=== PATIENT | female | born 1980 | race Two or more races ===

== ENCOUNTER 2016-06-23 13:20 | Inpatient (IN) | payer OTHER ==
[2016-06-23] MEDS ORDERED: LACTATED RINGERS SOLUTION 1,000 ML IV SCH (16:00)
[2016-06-23] MEDS ORDERED: BUTORPHANOL TARTRATE 1 MG/ML VIAL IVPB ONE (17:44)
[2016-06-23] MEDS ORDERED: PROMETHAZINE HCL 25 MG/1 ML VIAL IVPUSH ONE (17:44)
[2016-06-23] MEDS ORDERED: DEXTROSE 5%-LACTATED RINGERS 1,000 ML IV SCH (17:45)
[2016-06-23 18:28] VITALS: BMI 25.9
--- NOTE | 2016-06-23 18:49 | HP ---
Past Medical History - Admission History of Present Illness: 35 y/o G5/3013 with SIUP at 38 weeks who presented to the office with complaints of vaginal bleeding and cramping, was sent to L&D for monitoring and further evaluation. In the office the patient was noted to have light VB/ spotting and the patient's cervix was 1cm dilated. After 4 hours of ambulation and monitoring, the patient is now in more pain, delon every 2-4 minutes and her cervix is 3cm dilated. complicated by AMA, a vanishing twin (in 1st trimester) and the patient's history of Multiple sclerosis. The patient did follow with MFM and neurology throughout her and she has been stable. GBS negative, HIV negative, HepBSAG negative, Rubella Immune. RPR was positive in 1st trimester but treponeum pallidum testing was negative - likely false positive 2/2 . 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 No: Seizure Cardiovascular: No: CAD, HTN Pulmonary: No: Asthma, Pulmonary Embolus Gastrointestinal: No: Gastritis, GERD Hepatobiliary: No: Hepatitis B, Hepatitis C Renal/: No: UTI Reproductive: No: Ectopic , Fibroids, PID, Polycystic Ovary Syndrome ...: 5 ...Para: 3 ...Term: 3 ...: 0 ...Spon : 1 ...Induced : 0 ...Multiple Gestation: 0 ...LMP: 10/21/15 ... Weeks Gestation by Dates: 35.1 ...EDC by Dates: 07/27/16 ...EDC by Sono: 07/07/16 Infectious Disease: No: HIV, MRSA, STD's Psych: Yes: Anxiety (history of Anxiety after being diagnosed with multiple sclerosis) Rheumatology: No: Fibromyalgia Endocrine: No: Hyperparathyroidism, Hyperthyroidism - Past Surgical History Past Surgical History: Yes: None Hx Myomectomy: No Hx Transabdominal Cerclage: No Additional Surgical History: D&C. breast surgery - Smoking History Smoking history: Never smoked Have you smoked in the past 12 months: No Aproximately how many cigarettes per day: 0 - Alcohol/Substance Use Hx Alcohol Use: No History of Substance Use: reports: None - Social History Usual Living Arrangement: Yes: With Spouse ADL: Independent History of Recent Travel: No Home Medications - Allergies Allergies/Adverse Reactions: Allergies Allergy/AdvReac Type Severity Reaction Status Date / Time No Known Drug Allergies Allergy Verified 06/23/16 14:09 - Home Medications Home Medications: Ambulatory Orders Vit/Iron Fumarate/FA [ Tablet] 1 each PO DAILY 06/23/16 Review of Systems - Review of Systems Constitutional: reports: No Symptoms Eyes: reports: No Symptoms HENT: reports: No Symptoms Neck: reports: No Symptoms Cardiovascular: reports: No Symptoms Respiratory: reports: No Symptoms Gastrointestinal: reports: No Symptoms Genitourinary: reports: Vaginal Bleeding Breasts: reports: No Symptoms Reported Musculoskeletal: reports: No Symptoms Integumentary: reports: No Symptoms Neurological: reports: No Symptoms Endocrine: reports: No Symptoms Hematology/Lymphatic: reports: No Symptoms Physical Exam - Maternity Vital Signs: Vital Signs Temperature 98.1 F 06/23/16 14:30 Pulse Rate 78 06/23/16 15:08 Respiratory Rate 18 06/23/16 14:30 Blood Pressure 115/69 06/23/16 15:08 O2 Sat by Pulse Oximetry (%) Constitutional: Yes: Well Nourished, No Distress, Calm Eyes: Yes: Conjunctiva Clear, EOM Intact HENT: Yes: Atraumatic, Normocephalic Neck: Yes: Supple, Trachea Midline Cardiovascular: Yes: Regular Rate and Rhythm Lungs: Clear to auscultation - Abdominal Exam/OB Fundal Height: 37 Number of Fetuses: Single Presentation: Vertex Contractions: Yes Regularity: Irregular Intensity: Mild/Mod Monitor Mode: External Heart Rate (range): 130 Category: I Accelerations: Uniform Decelerations: None - Vaginal Exam/OB Vaginal Bleediing: Yes, Light Speculum Exam: No Dilatation (cm): 3 Effacement (%): 60 Amniotic Membrane Status: Intact Presentation: Vertex/Position Station: -3 - Physical Exam Psychiatric: Yes: Alert, Oriented Hemorrhage Risk Assessment - Risk Factors Medium Risk Factors: Yes: None High Risk Factors: Yes: None Risk Score: 1 Risk Level: Medium Risk Problem List - Problems (1) Advanced maternal age during in third trimester Code(s): [id number] - (2) Advanced maternal age in multigravida Code(s): O09.529 - SUPERVISION OF ELDERLY MULTIGRAVIDA, UNSPECIFIED TRIMESTER (3) Term Code(s): Z34.80 - ENCOUNTER FOR SUPRVSN OF NORMAL , UNSP TRIMESTER (4) Multiple sclerosis affecting in third trimester Code(s): O99.353 - DISEASES OF THE NERVOUS SYS COMP , THIRD TRIMESTER G35 - MULTIPLE SCLEROSIS Assessment/Plan 35 y/o female with SIUP at 38 weeks in early labor - FHTS cat 1 - encourage ambulation, will augment with pitocin - GBS negative - Multiple sclerosis - currently on no medications - will follow up with neurology post
[2016-06-23] MEDS ORDERED: OXYTOCIN 15 UNITS/ LR 250 ML 250 ML IVPB SCH (19:00)
[2016-06-23 20:51] LABS: BASOPHIL 0.5 % (0-2.0); EOSINOPHIL 0.9 % (0-4.5); MCH 29.8 pg (25.7-33.7); MEAN CELL VOLUME 90.5 fl (80-96); NEUTROPHILS 70.3 % (42.8-82.8); PLATELET COUNT 211 K/MM3 (134-434); RDW 13.8 % (11.6-15.6); WHITE BLOOD COUNT 9.2 K/mm3 (4.0-10.0)
[2016-06-23 21:05] LABS: CALCIUM 9.2 mg/dL (8.5-10.1); COCKROFT - GAULT 123.4455; CREATININE 0.6 mg/dL (0.55-1.02)
[2016-06-23 21:28] LABS: INR 0.96 (0.82-1.09); PROTHROMBIN TIME (PATIENT) 10.6 SEC (9.98-11.88)
[2016-06-23 21:31] LABS: ACTIVATED PTT 27.5 SECONDS (26.9-34.4)
--- NOTE | 2016-06-23 22:53 | PN ---
Ante-Partal Exam - Subjective Subjective: Pt states contractions are getting strong - but they are tolerable. Vital Signs: Vital Signs Temperature 98.6 F 06/23/16 21:00 Pulse Rate 90 06/23/16 21:00 Respiratory Rate 20 06/23/16 21:00 Blood Pressure 112/73 06/23/16 21:00 O2 Sat by Pulse Oximetry (%) Bleeding: Yes Bleeding Description: Mild (consistent with bloody show) Headache: No Visual changes: No Right upper quadrant pain: No Pain (scale 1-10): 5 - Contractions Contractions: Yes Regularity: Regular Intensity: Moderate Monitor Mode: External - Exam during Labor Heart Rate: 150 Variability: Moderate Category: I Monitor Accelerations: Present Monitor Decelerations: None Exam: Vaginal Dilatation (cm): 4 Effacement (%): 60 Amniotic Membrane Status: Ruptured (AROM for clear but blood tinged fluid on exam today) Amniotic Fluid: Clear, Blood Stained Presentation: Vertex Station: -2 - Assessment/Plan Assessment/Plan: 35 y/o wtih SIUP at 38 weeks, early labor, augmented - AFVSS - FHTs cat 1 - labor, augmented. Pitocin at 3, continue to increase per protocol. S/P AROM. Continue monitoring. IV analgesia or epidural PRN. - GBS negative - anticipate
[2016-06-24] MEDS ORDERED: ELECTROLYTE-148 SOLN 500 ML IV ONE (01:40)
[2016-06-24] MEDS: ELECTROLYTE-148 SOLN 500 ML IV ONE ×2 (01:45→02:40)
[2016-06-24] MEDS ORDERED: FENTANYL/BUPIVACAINE/NS/PF - PCEA - 50 ML DISP.SYRIN EP SCH (02:00)
--- NOTE | 2016-06-24 04:15 | PN ---
Ante-Partal Exam - Subjective Subjective: pt with recurrent variables for 5 consecxutive ctx pt comfortable after epidural Vital Signs: Vital Signs Temperature 97.9 F 06/24/16 03:00 Pulse Rate 92 H 06/24/16 03:45 Respiratory Rate 18 06/24/16 03:45 Blood Pressure 107/74 06/24/16 03:45 O2 Sat by Pulse Oximetry (%) 98 06/24/16 02:30 Bleeding: Yes Bleeding Description: Mild Headache: No Visual changes: No Right upper quadrant pain: No - Contractions Contractions: Yes Regularity: Regular Intensity: Strong Monitor Mode: External - Exam during Labor Heart Rate: 150 Variability: Moderate Category: II Monitor Accelerations: Present Monitor Decelerations: Variable Exam: Vaginal Dilatation (cm): 6 Effacement (%): 90 Amniotic Membrane Status: Ruptured Presentation: Vertex Station: 0 - Assessment/Plan Assessment/Plan: FHTs improved after position change continue pitocin anticipate
[2016-06-24] MEDS ORDERED: ELECTROLYTE-148 SOLN 1,000 ML IV SCH (04:40)
--- NOTE | 2016-06-24 07:28 | PN ---
Ante-Partal Exam - Subjective Subjective: Pt feeling some pressure and some tightness. Vital Signs: Vital Signs Temperature 99.4 F 06/24/16 07:00 Pulse Rate 106 H 06/24/16 06:45 Respiratory Rate 20 06/24/16 06:45 Blood Pressure 109/70 06/24/16 06:45 O2 Sat by Pulse Oximetry (%) 98 06/24/16 02:30 Bleeding: Yes Bleeding Description: Mild Headache: No Visual changes: No Right upper quadrant pain: No Pain (scale 1-10): 1 - Contractions Contractions: Yes Regularity: Regular Intensity: Strong Monitor Mode: External - Exam during Labor Heart Rate: 160 Variability: Moderate Monitor Accelerations: Present Monitor Decelerations: None Exam: Vaginal Dilatation (cm): 10 Effacement (%): 100 Amniotic Membrane Status: Ruptured Presentation: Vertex Station: 0 - Assessment/Plan Assessment/Plan: 35 y/o with SIUP at 38 weeks, early labor, augmented - FHTS cat 1 now, was intermittently category 2 overnight - labor augmented , continue pitocin - GBS negative - anticipate
[2016-06-24] MEDS ORDERED: METHYLERGONOVINE MALEATE 0.2 MG/1 ML AMP IM PRN (09:30)
[2016-06-24] MEDS ORDERED: WITCH HAZEL 50% (TUCKS) 40 PAD/JAR PAD TP PRN (09:30)
[2016-06-24] MEDS ORDERED: oxyCODONE HCL 5 MG TABLET PO PRN (09:30)
[2016-06-24] MEDS ORDERED: BENZOCAINE 20% 57 GM BOTTLE TP PRN (09:30)
[2016-06-24] MEDS ORDERED: OXYTOCIN 20 UNITS in 0.9% NS 1,000 ML IV SCH (09:30)
[2016-06-24] MEDS ORDERED: BENZOCAINE 28 GM HEMORRHOIDAL OINTMENT TP PRN (09:30)
[2016-06-24] MEDS ORDERED: BISACODYL 10 MG SUPP.RECT RC PRN (09:30)
--- NOTE | 2016-06-24 09:42 | PN ---
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 Present: No Infant Gender: Female Position: Right, OA - 1 Minute Total Score: 8 5 Minutes Total Score: 9 - Feeding Plan Initial Plan: Elected not to breastfeed exclusively throughout hospitalization Remarks - Remarks Remarks: Uncomplicated of baby girl from DESI position tight nuchal cord noted after delivery of head, clamped and cut at perineum left shoulder (anterior) delivered with ease along with remainder of placenta was manually delivered without difficulty - bedside ultrasound s/p procedure was done to ensure complete removal - thin stripe with no color flow noted sponge count correct after delivery mom stable baby to well baby nursery
[2016-06-24] MEDS ORDERED: TUBERCULIN PPD 5 TU/0.1ML SYRINGE (IN PATIENT USE ONLY) ID ONE (11:15)
[2016-06-24] MEDS: PRENATAL VITAMINS W/ FOLIC ACID TABLET (FP) PO SCH (11:34)
[2016-06-24] MEDS: FERROUS SO4 325 MG TABLET (FP) PO SCH ×2 (12:13→17:51)
[2016-06-24] MEDS: IBUPROFEN 600 MG TABLET (FP) PO PRN (20:40)
[2016-06-24] MEDS: ACETAMINOPHEN 325 MG TABLET (FP) PO PRN (20:41)
[2016-06-25] MEDS: IBUPROFEN 600 MG TABLET (FP) PO PRN ×2 (05:53→10:01)
[2016-06-25] MEDS: ACETAMINOPHEN 325 MG TABLET (FP) PO PRN ×2 (05:54→10:00)
[2016-06-25 08:46] LABS: BASOPHIL 0.3 % (0-2.0); EOSINOPHIL 0.8 % (0-4.5); MCH 30.3 pg (25.7-33.7); MCHC 33.3 g/dl (32.0-36.0); MEAN CELL VOLUME 91.1 fl (80-96); MEAN PLT VOLUME 8.7 fl (7.5-11.1); PLATELET COUNT 167 K/MM3 (134-434); RDW 13.9 % (11.6-15.6)
[2016-06-25] MEDS: FERROUS SO4 325 MG TABLET (FP) PO SCH ×3 (09:53→17:45)
[2016-06-25] MEDS: PRENATAL VITAMINS W/ FOLIC ACID TABLET (FP) PO SCH (09:53)
--- NOTE | 2016-06-25 13:23 | PN ---
Post Progress Note - Subjective Subjective: 35 yo Para 4, status post vaginal delivery, seen and evaluated. No complaints. She's breast feeding. Type of Delivery: Vital Signs: Vital Signs Temperature 97.5 F L 06/25/16 10:00 Pulse Rate 80 06/25/16 10:00 Respiratory Rate 20 06/25/16 10:00 Blood Pressure 109/67 06/25/16 10:00 O2 Sat by Pulse Oximetry (%) 98 06/24/16 02:30 Breast Exam: Yes: Soft Uterus: Yes: Fundus Firm Abdomen/GI: Yes: Abdomen soft, Tolerating PO Lochia: Yes: Rubra Lochia, amount: Small Activity: Ambulating - Labs Labs: CBC WBC 15.0 K/mm3 (4.0-10.0) H D 06/25/16 08:10 RBC 3.87 M/mm3 (3.60-5.2) 06/25/16 08:10 Hgb 11.7 GM/dL (10.7-15.3) 06/25/16 08:10 Hct 35.3 % (32.4-45.2) 06/25/16 08:10 MCV 91.1 fl (80-96) 06/25/16 08:10 MCHC 33.3 g/dl (32.0-36.0) 06/25/16 08:10 RDW 13.9 % (11.6-15.6) 06/25/16 08:10 Plt Count 167 K/MM3 (134-434) D 06/25/16 08:10 MPV 8.7 fl (7.5-11.1) 06/25/16 08:10 Neutrophils % 81.0 % (42.8-82.8) 06/25/16 08:10 Lymphocytes % 13.6 % (8-40) D 06/25/16 08:10 Monocytes % 4.3 % (3.8-10.2) 06/25/16 08:10 Eosinophils % 0.8 % (0-4.5) 06/25/16 08:10 Basophils % 0.3 % (0-2.0) 06/25/16 08:10 Problem List - Problems (1) Status post normal vaginal delivery Code(s): UOV8239 - Assessment/Plan Status post normal vaginal delivery Stable Routine care D/C home in am
--- NOTE | 2016-06-25 13:25 | DS ---
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 Vital Signs: Vital Signs Temperature 97.5 F L 06/25/16 10:00 Pulse Rate 80 06/25/16 10:00 Respiratory Rate 20 06/25/16 10:00 Blood Pressure 109/67 06/25/16 10:00 O2 Sat by Pulse Oximetry (%) 98 06/24/16 02:30 Constitutional: Yes: Well Nourished Eyes: Yes: Conjunctiva Clear HENT: Yes: Atraumatic Neck: Yes: Supple, Trachea Midline Cardiovascular: Yes: Regular Rate and Rhythm Respiratory: Yes: Regular, CTA Bilaterally Gastrointestinal: Yes: Normal Bowel Sounds ...Rectal Exam: Yes: WNL External Genitalia: Yes: Normal Cervix: Yes: Normal Uterus: Yes: Firm ....Post : Yes: Uterus firm, Moderate lochia serosa Breast(s): Yes: WNL Wound/Incision: Yes: Well Approximated Neurological: Yes: Alert, Oriented ...Motor Strength: WNL Psychiatric: Yes: Alert, Oriented Labs: CBC, BMP 06/25/16 08:10 06/23/16 19:45 Delivery - Delivery Vaginal Delivery: No Problems Type of Anesthesia: Epidural Episiotomy/Laceration: None EBL (cc): 300 Delivery, Single - Stages of Labor Date 1st Stage Initiatied: 06/23/16 Time 1st Stage Initiated: 13:00 Date 2nd Stage Initiated: 06/24/16 Time 2nd Stage Initiated: 07:25 Date of Delivery: 06/24/16 Time of Delivery: 09:18 Time Placenta Delivered: 09:22 Placenta: Yes: Manual Removal - Condition of Tube Laser Operator/Vascular Ultrasound Technician Present: No Infant Gender: Female Weight: 6 lb 13 oz Position: Right, OA Total Hours ROM (Hrs/Mins): 10 HOURS 28 MINUTES - 1 Minute Total Score: 8 5 Minutes Total Score: 9 - Feeding Plan Initial Plan: Elected not to breastfeed exclusively throughout hospitalization Discharge Summary Reason For Visit: LABOR Current Active Problems Advanced maternal age during in third trimester (Acute) Advanced maternal age in multigravida (Acute) Multiple sclerosis affecting in third trimester (Acute) Status post normal vaginal delivery (Acute) Term (Acute) Procedures: Principal: Normal spontaneus vaginal delivery Hospital Course: Routine care - Instructions Diet, Activity, Other Instructions: Regular diet No douching, no sexual intercourse x 6 weeks F/U with MD in 6 weeks. Disposition: HOME - Home Medications Comprehensive Discharge Medication List: Ambulatory Orders Vit/Iron Fumarate/FA [ Tablet] 1 each PO DAILY 06/23/16
[2016-06-25] MEDS ORDERED: SENNOSIDES/DOCUSATE COMBO (SENNA PLUS) TABLET (UD) PO PRN (22:00)
[2016-06-26] MEDS: PRENATAL VITAMINS W/ FOLIC ACID TABLET (FP) PO SCH (09:18)
[2016-06-26] MEDS: FERROUS SO4 325 MG TABLET (FP) PO SCH ×2 (09:18→12:18)
[2016-06-26 13:27] VITALS: BP 119/69; PULSE 72; TEMP 97.9
--- NOTE | 2016-06-26 16:48 | PN ---
Post Note - Post Date of Delivery: 06/24/16 Vital Signs: Vital Signs - 24 hr 06/25/16 06/26/16 22:00 08:30 Temperature 98.1 F 97.9 F Pulse Rate 82 72 Respiratory 18 20 Rate Blood Pressure 116/70 119/69 - Subjective Subjective: No Complaints - Objective Afebrile: No Breast: Not engorged Abdomen: Soft, Non-tender Uterus: Fundus firm Vagina: Scant lochia Extremities: Non-tender - Assessment/Plan (2) Multiple sclerosis affecting in third trimester Assessment: S/P Normal Plan: Routine Care
== END 2016-06-26 14:20 | disposition home or self-care (01) | DRG 560 ==
LOC: JDEL 13:20 → JLDR 17:35 → J3W 06-24 10:54
PROVIDERS: ADMIT Obstetrics & Gynecology; ATTEND Obstetrics & Gynecology
PROC: 10E0XZZ Delivery of Products of Conception, External Approach (ICD-10-PCS; principal; 2016-06-24)
DX: O99.354 Diseases of the nervous system complicating childbirth (principal); G35 Multiple sclerosis; O69.1XX0 Labor and delivery complicated by cord around neck, with compression, not applicable or unspecified; Z3A.38 38 weeks gestation of pregnancy; Z37.0 Single live birth
CPT/HCPCS: 36415; 59409; 80048; 85025; 85610; 85730; 86593; 86780; 86850; 86900; 86901

== ENCOUNTER 2016-06-29 10:08 | Emergency (ER) | payer OTHER ==
[2016-06-29 10:19] VITALS: BP 127/85; PULSE 78; TEMP 99.4; BMI 23.8
--- NOTE | 2016-06-29 10:52 | PDOC ---
*Physical Exam - Vital Signs Last Vital Signs Temp Pulse Resp BP Pulse Ox 99.4 F 78 18 127/85 98 06/29/16 10:16 06/29/16 10:16 06/29/16 10:16 06/29/16 10:16 06/29/16 10:16 - Physical Exam Comments: 06/29/16 10:52 MIDLEVEL NOTE Pt seen by Midlevel Provider under my direct supervision. Pt interviewed and examined. Ancillary studies reviewed. I agree with plan as outlined by Midlevel Provider. Laboratory Tests 06/29/16 11:27 Urine Color Ltyellow Urine Appearance Clear Urine pH 7.0 D Ur Specific [place] 1.015 Urine Protein Negative Urine Glucose (UA) Negative Urine Ketones Negative Urine Blood 3+ H Urine Nitrite Negative Urine Bilirubin Negative Urine Urobilinogen Negative Ur Leukocyte Esterase 3+ H Urine RBC 179 Urine WBC 35 Ur Epithelial Cells Rare Urine Mucus Rare *DC/Admit/Observation/Transfer Diagnosis at time of Disposition: UTI (urinary tract infection) - Discharge Dispostion Disposition: HOME - Prescriptions Prescriptions: Nitrofurantoin Monohyd/M-Cryst [Macrobid -] 100 mg PO BID #14 capsule - Referrals Referrals: Michelle Salvador DO [Staff Physician] - Sam Maza MD [Primary Care Provider] - - Patient Instructions Printed Discharge Instructions: DI for Urinary Tract Infection (UTI) Additional Instructions: Please take antibiotics as prescribed until completed. Please take Motrin or Tylenol for discomfort and fever. Please follow-up with your PLAN COORDINATOR later this week and return to ED if symptoms worsen.
--- NOTE | 2016-06-29 11:35 | PDOC ---
History of Present Illness - General Chief Complaint: Blood Sugar Problem Stated Complaint: FEVER, POSSIBLE INFECTION (POST DELIVERY) Time Seen by Provider: 06/29/16 10:50 History Source: Patient Exam Limitations: No Limitations - History of Present Illness Initial Comments: 06/29/16 11:35 35 y/o female status post vaginal deliveries 6 days ago presents with mid suprapubic pressure and fever since yesterday with a MAXIMUM TEMPERATURE of 100.9. Patient denies constipation, diarrhea, urinary complaints, abnormal vaginal discharge besides vaginal bleeding, back pain, nausea, cough, or chest pain. Patient denies medical history and took Tylenol 650 at 6 AM secondary to pain and fever. Timing/Duration: 24 hours Severity: mild Associated Symptoms: reports: fever/chills Past History - Past Medical History Allergies/Adverse Reactions: Allergies Allergy/AdvReac Type Severity Reaction Status Date / Time No Known Drug Allergies Allergy Verified 06/29/16 10:19 Home Medications: Ambulatory Orders Vit/Iron Fumarate/FA [ Tablet] 1 each PO DAILY 06/23/16 Ibuprofen [Motrin -] 600 mg PO QID PRN #28 tablet 06/26/16 Anemia: No Asthma: No Cancer: No Cardiac Disorders: No CVA: No COPD: No CHF: No Dementia: No Diabetes: No GI Disorders: No Disorders: No HTN: No Hypercholesterolemia: No Liver Disease: No Seizures: No Thyroid Disease: No Other medical history: MS - Surgical History Abdominal Surgery: No Appendectomy: No Cardiac Surgery: No Cholecystectomy: No Lung Surgery: No Neurologic Surgery: No Orthopedic Surgery: No - Reproductive History Is Patient Now?: No - Psycho/Social/Smoking Cessation Hx Suicidal Ideation: No Smoking Status: No Smoking History: Never smoked Have you smoked in the past 12 months: No Number of Cigarettes Smoked Daily: 0 Hx Alcohol Use: No Drug/Substance Use Hx: No Substance Use Type: None Hx Substance Use Treatment: No Patient Lives Alone: No Lives with/in: spouse/SO Review of Systems - Review of Systems Able to Perform ROS?: Yes Constitutional: Yes: Chills, Fever HEENTM: No: Symptoms Reported Respiratory: No: Symptoms reported Cardiac (ROS): No: Symptoms Reported ABD/GI: Yes: Abdominal cramping : No: Symptoms Reported Musculoskeletal: No: Symptoms Reported Integumentary: No: Symptoms Reported Neurological: No: Symptoms reported *Physical Exam - Vital Signs Last Vital Signs Temp Pulse Resp BP Pulse Ox 99.4 F 78 18 127/85 98 06/29/16 10:16 06/29/16 10:16 06/29/16 10:16 06/29/16 10:16 06/29/16 10:16 - Physical Exam General Appearance: Yes: Nourished, Appropriately Dressed. No: Apparent Distress HEENT: positive: EOMI, DIMITRI, Pharynx Normal. negative: Pale Conjunctivae Neck: positive: Supple Respiratory/Chest: positive: Lungs Clear, Normal Breath Sounds. negative: Respiratory Distress, Accessory Muscle Use Cardiovascular: positive: Regular Rhythm, Regular Rate. negative: Murmur Gastrointestinal/Abdominal: positive: Soft, Tenderness (mid suprapubic and periumbilical). negative: Hernia, Mass Musculoskeletal: negative: CVA Tenderness Extremity: positive: Normal Capillary Refill. negative: Pedal Edema Integumentary: positive: Normal Color, Warm, Moist Neurologic: positive: Motor Strength 5/5 ( ambulatory) Medical Decision Making - Medical Decision Making 06/29/16 11:38 Patient status post vaginal delivery 6 days ago complaining of fever and suprapubic. Patient does have point tenderness to the area and the periumbilical region. Patient no right lower quadrant or right upper quadrant pain. Patient states did have manual removal of her placenta and then had a Francis catheter placed status post delivery patient ordered for urinalysis urine culture and explained to patient if negative will continue with labs and possible imaging. 06/29/16 13:07 Patient will be revitalize and discharged home with Macrobid. Patient is to follow up with Dr. Salvador her RESIDENTIAL PROPERTY CONSULTANT. Laboratory Tests 06/29/16 11:27 Urine Blood 3+ H Ur Leukocyte Esterase 3+ H Urine RBC 179 Urine WBC 35 *DC/Admit/Observation/Transfer Diagnosis at time of Disposition: Urinary tract infection Qualifiers: Urinary tract infection type: acute cystitis Hematuria presence: with hematuria Qualified Code(s): N30.01 - Acute cystitis with hematuria - Discharge Dispostion Disposition: HOME - Referrals Referrals: Sam Maza MD [Primary Care Provider] - Michelle Salvador DO [Staff Physician] - - Patient Instructions Printed Discharge Instructions: DI for Urinary Tract Infection (UTI) Additional Instructions: Please take antibiotics as prescribed until completed. Please take Motrin or Tylenol for discomfort and fever. Please follow-up with your RESIDENTIAL PROPERTY CONSULTANT later this week and return to ED if symptoms worsen.
[2016-06-29 11:59] LABS: URINE APPEARANCE CLEAR; URINE BILIRUBIN NEGATIVE (NEGATIVE); URINE COLOR LTYELLOW; URINE GLUCOSE (UA) NEGATIVE (NEGATIVE); URINE KETONE NEGATIVE (NEGATIVE); URINE NITRITE NEGATIVE (NEGATIVE); URINE PROTEIN NEGATIVE (NEGATIVE); URINE UROBILINOGEN NEGATIVE E.U./dl (0.2-1.0)
[2016-06-29 12:01] LABS: URINE BLOOD 3+ (NEGATIVE); URINE LEUK ESTERASE 3+ (NEGATIVE)
[2016-06-29 12:57] LABS: URINE MUCUS RARE; URINE RBC 179 /hpf (0-3); URINE WBC 35 /hpf (3-5)
== END 2016-06-29 13:26 | disposition home or self-care (01) ==
LOC: JER 10:08
DX: O86.29 Other urinary tract infection following delivery (principal); N30.01 Acute cystitis with hematuria
CPT/HCPCS: 81003; 81015; 87077; 87086; 99282-25

== ENCOUNTER 2016-07-02 00:39 | Inpatient (IN) | payer OTHER ==
--- NOTE | 2016-07-02 00:44 | PDOC ---
History of Present Illness <Maury Harman - Last Filed: 07/02/16 00:44> <Zoe Burger - Last Filed: 07/02/16 01:51> <CashTrisha - Last Filed: 07/02/16 22:55> - General Stated Complaint: CHEST PAIN Time Seen by Provider: 07/02/16 00:42 - History of Present Illness Initial Comments: 07/02/16 01:30 The patient is a 35 year old female, with a recent history of vaginal delivery on 06/22/16 and a significant past medical history of, who presents to the emergency department febrile, with pleuritic chest pain and difficulty breathing s/p taking augmentin 30 minutes prior to her ED arrival. She states she was feeding her after taking her antibiotics and developed a sudden onset of chest pain. She localizes the pain to her midsternal region and reports feeling a pinching to her left scapula. She states her pain is worse with inspiration. The patient reports one episode of emesis at the onset of her chest pain at home. She denies nausea or vomiting since. The patient states she was seen in the ED on 06/29/16, diagnosed with a UTI, and prescribed macrobid, however, the patient reports Dr. Salvador later prescribed her augmentin. She states her fevers have been persistent for 6 days and reports her oral temperature was 100F yesterday and is 102F today despite taking antibiotics. She denies chest pain, shortness of breath, headache and dizziness. She denies fever, chills, nausea, vomit, diarrhea and constipation. She denies dysuria, frequency, urgency and hematuria. 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 Salvador (Zoe Burger) Past History - Past Medical History Anemia: No Asthma: No Cancer: No Cardiac Disorders: No CVA: No COPD: No CHF: No Dementia: No Diabetes: No GI Disorders: No Disorders: No HTN: No Hypercholesterolemia: No Liver Disease: No Seizures: No Thyroid Disease: No - Surgical History Abdominal Surgery: No Appendectomy: No Cardiac Surgery: No Cholecystectomy: No Lung Surgery: No Neurologic Surgery: No Orthopedic Surgery: No - Psycho/Social/Smoking Cessation Hx Suicidal Ideation: No Smoking Status: No Smoking History: Never smoked Have you smoked in the past 12 months: No Number of Cigarettes Smoked Daily: 0 Hx Alcohol Use: No Drug/Substance Use Hx: No Substance Use Type: None Hx Substance Use Treatment: No <Maury Harman - Last Filed: 07/02/16 00:44> <Zoe Burger - Last Filed: 07/02/16 01:51> <Trisha Cash - Last Filed: 07/02/16 22:55> - Past Medical History Allergies/Adverse Reactions: Allergies Allergy/AdvReac Type Severity Reaction Status Date / Time No Known Drug Allergies Allergy Verified 07/02/16 02:29 Home Medications: Ambulatory Orders Nitrofurantoin Monohyd/M-Cryst [Macrobid -] 100 mg PO BID #14 capsule 06/29/16 Amoxicillin/Potassium Clav [Augmentin 875-125 Tablet] 1 each PO BID 07/02/16 Cardiac Specific PMH - Complaint Specific PMHX Pacemaker: No <Maury Harman - Last Filed: 07/02/16 00:44> Review of Systems <Maury Harman - Last Filed: 07/02/16 00:44> - Review of Systems Able to Perform ROS?: Yes <Zoe Burger - Last Filed: 07/02/16 01:51> <Trisha Cash - Last Filed: 07/02/16 22:55> - Review of Systems Comments:: 07/02/16 01:31 CONSTITUTIONAL: (+) fever, no chills, no fatigue EYES: No visual changes ENT: No ear pain, no sore throat CARDIOVASCULAR: (+) pleuritic chest pain, no palpitations RESPIRATORY: (+) difficulty breathing. No cough, no SOB GI: No abdominal pain, no nausea, no vomiting, no constipation, no diarrhea GENITOURINARY: No dysuria, no frequency, no hematuria MUSKULOSKELETAL: No backpain, no joint pain, no myalgias SKIN: No rash NEURO: No headache (Zoe Burger) *Physical Exam <Maury Harman - Last Filed: 07/02/16 00:44> <Zoe Burger - Last Filed: 07/02/16 01:51> <Trisha Cash - Last Filed: 07/02/16 22:55> - Vital Signs Last Vital Signs Temp Pulse Resp BP Pulse Ox 100.2 F H 81 20 135/81 98 07/02/16 17:30 07/02/16 17:30 07/02/16 17:30 07/02/16 17:30 07/02/16 07:35 - Physical Exam Comments: 07/02/16 01:33 CONSTITUTIONAL: (+) febrile. Well-appearing; well-nourished; in no apparent distress HEAD: Normocephalic; atraumatic EYES: PERRL; EOM intact ENMT: External appears normal; normal oropharynx NECK: Supple; non-tender; no cervical lymphadenopathy CARD: Normal S1, S2; no murmurs, rubs, or gallops RESP: Normal chest excursion with respiration; breath sounds clear and equal bilaterally; no wheezes, rhonchi, or rales ABD: Soft, non-distended; non-tender. no palpable organomegaly, no palpable hernias EXT: Normal ROM in all four extremities; non-tender to palpation; distal pulses intact MUSC: (+) reproducible chest wall tenderness to palpation SKIN: Warm, dry, no rash NEURO: No focal neurological deficiencies (Zoe Burger) Heart Score/ECG Review <Maury Harman - Last Filed: 07/02/16 00:44> <Zoe Burger - Last Filed: 07/02/16 01:51> <Trisha Cash - Last Filed: 07/02/16 22:55> - ECG Intrepretation Comment:: 07/02/16 01:35 ECG was read by Dr. Harman at 00:47 Impression: Sinus bradycardia Vent.Rate: 59 bpm WI Interval 112 bpm QTc: 372 ms (Zoe Burger) ED Treatment Course - LABORATORY CBC & Chemistry Diagram: 07/02/16 01:01 07/02/16 01:01 <Zoe Burger - Last Filed: 07/02/16 01:51> - LABORATORY CBC & Chemistry Diagram: 07/02/16 01:01 07/02/16 01:01 <Trisha Cash - Last Filed: 07/02/16 22:55> - ADDITIONAL ORDERS Additional order review: Laboratory Results 07/02/16 02:20 Ur Specific [place] 1.010 07/02/16 01:01 RBC 4.41 MCV 90.3 MCHC 32.5 RDW 13.5 MPV 8.4 Neutrophils % 70.7 Lymphocytes % 20.3 D Monocytes % 6.8 Eosinophils % 1.6 D Basophils % 0.6 - Medications Given in the ED: ED Medications Discontinued Medications Generic Name Dose Route Start Last Admin Trade Name Jason PRN Reason Stop Dose Admin Sodium Chloride 1,000 mls @ 1,000 mls/hr 07/02/16 00:55 07/02/16 01:33 Normal Saline - IV 07/02/16 01:54 1,000 mls/hr ASDIR STA Administration Sodium Chloride 500 mls @ 500 mls/hr 07/02/16 01:57 07/02/16 04:21 Normal Saline - IV 07/02/16 02:56 500 mls/hr ASDIR STA Administration Ceftriaxone Sodium 1 gm/ 50 mls @ 100 mls/hr 07/02/16 02:49 07/02/16 02:57 Dextrose IVPB 07/02/16 03:18 100 mls/hr ONCE ONE Administration Sodium Chloride 500 mls @ 500 mls/hr 07/02/16 02:49 07/02/16 02:56 Normal Saline - IV 07/02/16 03:48 500 mls/hr ASDIR STA Administration Ampicillin Sodium/Sulbactam 100 mls @ 200 mls/hr 07/02/16 11:00 07/02/16 11:32 Sodium 3 gm/ Sodium Chloride IVPB 07/02/16 11:29 200 mls/hr ONCE ONE Administration Ibuprofen 600 mg 07/02/16 05:00 07/02/16 05:15 Motrin - PO 600 mg Q6H ISHA Administration Medical Decision Making <Maury Harman - Last Filed: 07/02/16 00:44> <Zoe Burger - Last Filed: 07/02/16 01:51> <Trisha Cash - Last Filed: 07/02/16 22:55> - Medical Decision Making 07/02/16 22:53 I received pt on signout and she has a hx of UTI post , then her donor floor technician diagnosed her with a potential endometritis, and upgraded her antibiotics to augmentin x last 2 days. In spite of this pt has continued fever. I will admit her to her [employer] [facility]. ER doc before me treated with ceftriaxone 1 g. Pt feels well and is amenable to admission. Cultures are pending. (Trisha Cash) *DC/Admit/Observation/Transfer <Maury Harman - Last Filed: 07/02/16 00:44> <Zoe Burger - Last Filed: 07/02/16 01:51> - Discharge Dispostion Admit: Yes <Trisha Cash - Last Filed: 07/02/16 22:55> Diagnosis at time of Disposition: Endometritis, Fever, infection - Referrals - Attestations Scribe Attestion: 07/02/16 01:34 Documentation prepared by Zoe Burger, acting as medical doctor nuclear medicine for Maury Harman MD (Zoe Burger)
[2016-07-02 00:51] VITALS: BMI 26.4
[2016-07-02] MEDS ORDERED: SODIUM CHLORIDE 1,000 ML IV STA (00:55)
[2016-07-02 01:11] LABS: BASOPHIL 0.6 % (0-2.0); EOSINOPHIL 1.6 % (0-4.5); MCH 29.4 pg (25.7-33.7); MCHC 32.5 g/dl (32.0-36.0); MEAN CELL VOLUME 90.3 fl (80-96); MEAN PLT VOLUME 8.4 fl (7.5-11.1); NEUTROPHILS 70.7 % (42.8-82.8); PLATELET COUNT 289 K/MM3 (134-434); RDW 13.5 % (11.6-15.6); WHITE BLOOD COUNT 11.4 K/mm3 (4.0-10.0)
[2016-07-02 01:25] LABS: INR 0.97 (0.82-1.09); PROTHROMBIN TIME (PATIENT) 10.7 SEC (9.98-11.88)
[2016-07-02 01:32] LABS: ALBUMIN 2.6 g/dl (3.4-5.0); ALK PHOS 165 U/L (45-117); ANION GAP 10 (8-16); BILIRUBIN,TOTAL 0.3 mg/dL (0.2-1.0); CALCIUM 8.5 mg/dL (8.5-10.1); CO2 23 mmol/L (21-32); COCKROFT - GAULT 107.3975; CREATININE 0.7 mg/dL (0.55-1.02); GLUCOSE,RANDOM 91 mg/dL (74-106); SGOT/AST 23 U/L (15-37); SGPT/ALT 53 U/L (12-78); TOT PROT 6.6 g/dl (6.4-8.2)
[2016-07-02] MEDS ORDERED: SODIUM CHLORIDE 500 ML IV STA ×2 (01:57→02:49)
[2016-07-02 02:21] LABS: URINE APPEARANCE CLEAR; URINE BILIRUBIN NEGATIVE (NEGATIVE); URINE COLOR YELLOW; URINE GLUCOSE (UA) NEGATIVE (NEGATIVE); URINE KETONE NEGATIVE (NEGATIVE); URINE NITRITE NEGATIVE (NEGATIVE); URINE PROTEIN NEGATIVE (NEGATIVE); URINE UROBILINOGEN NEGATIVE E.U./dl (0.2-1.0)
[2016-07-02 02:32] LABS: URINE BLOOD 3+ (NEGATIVE); URINE LEUK ESTERASE 3+ (NEGATIVE)
[2016-07-02 02:42] LABS: URINE BACTERIA RARE /hpf (NONE SEEN); URINE MUCUS RARE; URINE RBC 4 /hpf (0-3); URINE WBC 142 /hpf (3-5)
[2016-07-02] MEDS ORDERED: CEFTRIAXONE 1 GM in DEXTROSE 5%-WATER - 50 ML IVPB ONE (02:49)
[2016-07-02] MEDS ORDERED: CEFTRIAXONE 50 ML ONE (02:55)
[2016-07-02] MEDS ORDERED: ACETAMINOPHEN 325 MG TABLET (FP) PO PRN (04:47)
[2016-07-02] MEDS ORDERED: IBUPROFEN 600 MG TABLET (FP) PO SCH (05:00)
[2016-07-02] MEDS ORDERED: IBUPROFEN 600 MG TABLET (FP) PO PRN (05:17)
[2016-07-02] MEDS ORDERED: AMPICILLIN NA/SULBACTAM NA 3 GM in SODIUM CHLORIDE 100 ML IVPB ONE (11:00)
--- NOTE | 2016-07-02 13:12 | HP ---
Admitting History and Physical - Admission History of Present Illness: 35 y/o female with history of multiple sclerosis and anxiety who is s/p a normal spontaneous vaginal delivery on 06/24/2016 presented to the ED today with complaints of chest pain. The patient had been seen in the ED last week with complaints of fever and was discharged home with treatment for possible UTI. The patient was also given antibiotics for possible endometritis as she had a delivery that was complicated by manual placental extraction. The patient took 2 doses of augmentin at home and after taking the 2nd dose, she had some chest pressure and nausea/vomiting. She then came to the ED for evaluation. CTA of the chest negative for PE. However, the patient complained of persistent fever up to 101.0 at home yesterday. Due to the new symptom of chest pain and persistent fever, the patient was kept for observation. Currently the patient is afebrile and denies any further chest pain since early this morning in the emergency department. Pt tolerating regular diet, ambulating, voiding. Denies CP/SOB. O2 saturations 97-100% on Room air and EKG only showed sinus tachycardia. 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 No: Seizure Pulmonary: No: Asthma, COPD Gastrointestinal: No: GERD, Irritable Bowel Disease Reproductive: No: Ectopic , Fibroids, PID ...LMP: 11/06/14 ...: No Infectious Disease: No: HIV, MRSA, STD's Psych: Yes: Anxiety (history of Anxiety after being diagnosed with multiple sclerosis) Endocrine: No: Hyperthyroidism, Hypothyroidism - Past Surgical History Past Surgical History: Yes: None Additional Past Surgical History: D&C for missed - Smoking History Smoking history: Never smoked Have you smoked in the past 12 months: No Aproximately how many cigarettes per day: 0 - Alcohol/Substance Use Hx Alcohol Use: No History of Substance Use: reports: None - Social History Usual Living Arrangement: Yes: With Spouse ADL: Independent History of Recent Travel: No Home Medications - Allergies Allergies/Adverse Reactions: Allergies Allergy/AdvReac Type Severity Reaction Status Date / Time No Known Drug Allergies Allergy Verified 07/02/16 02:29 - Home Medications Home Medications: Ambulatory Orders Nitrofurantoin Monohyd/M-Cryst [Macrobid -] 100 mg PO BID #14 capsule 06/29/16 Amoxicillin/Potassium Clav [Augmentin 875-125 Tablet] 1 each PO BID 07/02/16 Review of Systems - Review of Systems Constitutional: reports: Fever (at home) Eyes: denies: Blurred Vision, Double Vision HENT: denies: Difficult Swallowing, Throat Pain Neck: reports: No Symptoms Cardiovascular: reports: Chest Pain (earlier today, now resolved), Shortness of Breath (resolved) Genitourinary: reports: No Symptoms Breasts: reports: No Symptoms Reported Musculoskeletal: reports: No Symptoms Integumentary: reports: No Symptoms Neurological: reports: No Symptoms Endocrine: reports: No Symptoms Hematology/Lymphatic: reports: No Symptoms Psychiatric: reports: No Symptoms Physical Examination Vital Signs: Vital Signs Temperature 97.8 F 07/02/16 07:18 Pulse Rate 73 07/02/16 07:18 Respiratory Rate 17 07/02/16 07:18 Blood Pressure 108/69 07/02/16 07:18 O2 Sat by Pulse Oximetry (%) 98 07/02/16 07:35 Constitutional: Yes: Well Nourished, No Distress, Calm Eyes: Yes: Conjunctiva Clear, EOM Intact HENT: Yes: Atraumatic, Normocephalic Neck: Yes: Supple, Trachea Midline Cardiovascular: Yes: Regular Rate and Rhythm Respiratory: Yes: Regular, CTA Bilaterally. No: Rhonchi, SOB, SOB on Exertion, Tachypnea, Wheezes Gastrointestinal: Yes: Normal Bowel Sounds, Soft Breast(s): Yes: WNL Extremities: Yes: WNL Edema: No Neurological: Yes: Alert, Oriented. No: Confusion Psychiatric: Yes: Alert, Oriented Imaging - Results Cat Scan: Report Reviewed, Image Reviewed EKG: Report Reviewed Problem List - Problems (1) Fever Code(s): R50.9 - FEVER, UNSPECIFIED (2) Multiple sclerosis Code(s): G35 - MULTIPLE SCLEROSIS (3) Chest pain in adult Code(s): R07.9 - CHEST PAIN, UNSPECIFIED Assessment/Plan 35 y/o post day # 8 admitted with fevers at home and chest pain - likely endometritis, rule out cardiopulmonary sources of fever - AFVSS - possible endometritis - continue with broad spectrum antibiotics. S/p 2 doses of IV antibiotics, pt afebrile and tolerating PO. Will switch back to PO antibiotics for next dose. If has another episode of n/v and chest discomfort, will d/c oral antibiotics. - chest pain - symptoms have resovled - D dimer elevated on workup, but likely 2 /2 being post (d Dimer normal to be elevated in ) - O2 saturations normal and patient currently asymtpomatic. CTA negative for PE. Doubt PE as source of fever. Incentive spirometer given due to small pleural effusions and atalectasis noted on CT scan. If has another episode of chest pain will consult cardiology. Continue vital signs Q4h. - regular diet - encourage ambulation - If afebrile in A.M. and no further symptoms of chest discomfort - for discharge home
[2016-07-02] MEDS: AMOX TR/POT CLAV 875MG/125MG TABLETS (FP) PO SCH (19:50)
--- NOTE | 2016-07-03 07:21 | PN ---
Progress Note, Physician Chief Complaint: No complaints History of Present Illness: Pt seen/examined and doing well. No pain. Denies CP/SOB/F/C/RECIO. Tmax yesterday 100.2, no true fevers during admission. Pt tolerated Augmentin last night. Due for next dose this a.m. Post bleeding is normal/lochia minimal. No other complaints. - Current Medication List Current Medications: Active Medications Acetaminophen (Tylenol -) 650 mg PO Q4H PRN PRN Reason: PAIN Last Admin: 07/02/16 17:35 Dose: 650 mg Amoxicillin/Clavulanate Potassium (Augmentin - 875mg Tablet) 1 tab PO BID@0800, 1930 ISHA Last Admin: 07/02/16 19:50 Dose: 1 tab Ibuprofen (Motrin -) 600 mg PO Q6H PRN - Objective Vital Signs: Vital Signs Temperature 98.9 F 07/03/16 06:00 Pulse Rate 90 07/03/16 06:00 Respiratory Rate 20 07/03/16 06:00 Blood Pressure 121/78 07/03/16 06:00 O2 Sat by Pulse Oximetry (%) 98 07/02/16 07:35 Constitutional: Yes: Well Nourished, No Distress, Calm Eyes: Yes: Conjunctiva Clear HENT: Yes: Atraumatic, Normocephalic Neck: Yes: Supple, Trachea Midline Cardiovascular: Yes: Regular Rate and Rhythm Respiratory: Yes: Regular, CTA Bilaterally Gastrointestinal: Yes: Normal Bowel Sounds, Soft Extremities: Yes: WNL Edema: No Neurological: Yes: Alert, Oriented Psychiatric: Yes: Alert, Oriented Labs: INR, PTT INR 0.97 (0.82-1.09) 07/02/16 01:01 Problem List - Problems (1) Fever Code(s): R50.9 - FEVER, UNSPECIFIED (2) Multiple sclerosis Code(s): G35 - MULTIPLE SCLEROSIS (3) Chest pain in adult Code(s): R07.9 - CHEST PAIN, UNSPECIFIED Assessment/Plan 35 y/o post day # 9 admitted with fevers at home and chest pain - likely endometritis, rule out cardiopulmonary sources of fever - AFebrile since admission, other VSS - likely endometritis as source of fever - continue augmentin BID. - chest pain - symptoms have resovled - D dimer elevated on workup, but likely 2 /2 being post (d Dimer normal to be elevated in ) - O2 saturations normal and patient currently asymtpomatic. CTA negative for PE. Doubt PE as source of fever. Doing well with incentive spirometer. - regular diet - encourage ambulation -plan for discharge home with follow up Weds in office.
[2016-07-03] MEDS: AMOX TR/POT CLAV 875MG/125MG TABLETS (FP) PO SCH (07:24)
[2016-07-03 08:29] VITALS: BP 129/79; PULSE 92; TEMP 98.4
--- NOTE | 2016-07-03 10:41 | EKG ---
Test Reason : Blood Pressure : / mmHG Vent. Rate : 059 BPM Atrial Rate : 059 BPM P-R Int : 112 ms QRS Dur : 056 ms QT Int : 376 ms P-R-T Axes : 049 083 028 degrees QTc Int : 372 ms SINUS BRADYCARDIA OTHERWISE NORMAL ECG NO PREVIOUS ECGS AVAILABLE Confirmed by FUNMILAYO REYNA MD ([id number]) on 07/03/2016 10:41:02 AM Referred By: Confirmed By:FUNMILAYO REYNA MD
== END 2016-07-03 08:35 | disposition home or self-care (01) | DRG 561 ==
LOC: JER 00:39 → JERBED 04:37 → J3W 08:14
PROVIDERS: ADMIT Obstetrics & Gynecology; ATTEND Obstetrics & Gynecology
DX: O86.12 Endometritis following delivery (principal); O99.355 Diseases of the nervous system complicating the puerperium; G35 Multiple sclerosis; J90 Pleural effusion, not elsewhere classified; J98.11 Atelectasis; R07.1 Chest pain on breathing
CPT/HCPCS: 36415; 71260-TC; 80053; 81003; 81015; 85025; 85379; 85610; 87040; 87086; 93005; 93010; 94010; 99284-25